=== PATIENT | female | born 1965 | race Two or more races ===

== ENCOUNTER 2020-04-27 09:19 | Outpatient (CLI) | payer OTHER | END 2020-04-27 09:34 | disposition home or self-care (01) | LOC: SONOGRAMA 09:19 | PROVIDERS: ATTEND Pathology Anatomic Pathology & Clinical Pathology | DX: E04.1 Nontoxic single thyroid nodule (principal) ==

== ENCOUNTER 2023-08-14 15:02 | Outpatient (CLI) | payer OTHER | END 2023-08-14 15:15 | disposition home or self-care (01) | LOC: SONOGRAMA 15:02 | PROVIDERS: ATTEND Pathology Anatomic Pathology & Clinical Pathology | DX: D44.0 Neoplasm of uncertain behavior of thyroid gland (principal); E04.2 Nontoxic multinodular goiter ==